=== PATIENT | male | born 1955 | race Caucasian/White ===

== ENCOUNTER 2019-02-05 01:19 | Emergency (ER) | payer OTHER ==
[2019-02-05 02:57] VITALS: BP 117/62; PULSE 79; TEMP 98.2; BMI 38.0
--- NOTE | 2019-02-05 03:00 | PDOC ---
History of Present Illness - General Chief Complaint: Nausea/Vomiting Stated Complaint: DIZZINESS,VOMITING Time Seen by Provider: 02/05/19 02:42 - History of Present Illness Initial Comments: 02/05/19 05:08 The patient is a 63 year old male who denies any significant PMH who presents for evaluation of dizziness, nausea, and vomiting. The patient is accompanied by family who assist in providing the history. They report that the patient developed acute onset of room-spinning dizziness 1 day ago with associated nausea and several episodes of non-bilious, non-bloody vomiting prompting his presentation to the ED for further evaluation. The patient reports that his symptoms worsen with movement of his head as well as lying flat. He otherwise denies headache, fevers, chills, SOB, chest pain, abdominal pain, numbness, tingling, weakness, or changes with urination or bowel movements. Past History - Past Medical History Allergies/Adverse Reactions: Allergies Allergy/AdvReac Type Severity Reaction Status Date / Time No Known Allergies Allergy Verified 02/05/19 02:57 Home Medications: Ambulatory Orders Meclizine HCl [Antivert -] 25 mg PO TID #21 tablet 02/05/19 COPD: No - Psycho Social/Smoking Cessation Hx Smoking History: Never smoked Have you smoked in the past 12 months: No Information on smoking cessation initiated: No Hx Alcohol Use: No Drug/Substance Use Hx: No Review of Systems - Review of Systems Comments:: 02/05/19 05:14 Constitutional: No fevers, chills, fatigue, malaise HEENT: No Rhinorrhea, nasal congestion, visual changes Cardiovascular: No chest pain, syncope, palpitations, lightheadedness Respiratory: No Cough, SOB, Hemoptysis, Gastrointestinal: Nausea, vomiting. No Abdominal pain, Constipation, Diarrhea, Melena Genitourinary: No Dysuria, Frequency, Urgency, Hesitancy, Hematuria, Flank pain Musculoskeletal: No Myalgia, arthralgia Skin: No rashes, itching, bruising, pallor Neurologic: Dizziness. No Headache, Numbness, Weakness, or Tingling Psychiatric: No Hallucinations. No SI or HI *Physical Exam - Vital Signs Last Vital Signs Temp Pulse Resp BP Pulse Ox 98.2 F 79 18 117/62 96 02/05/19 01:21 02/05/19 01:21 02/05/19 01:21 02/05/19 01:21 02/05/19 01:21 - Physical Exam 02/05/19 05:15 General Appearance: Nourished. No Apparent Distress HEENT: EOMI, NIKOLAI. No Pharyngeal Erythema, Tonsillar Exudate, Tonsillar Erythema Neck: No Cervical Lymphadenopathy Respiratory/Chest: Lungs Clear, Normal Breath Sounds. No Crackles, Rales, Rhonchi, Wheezing Cardiovascular: Regular Rhythm, Regular Rate. No Murmur, Gallops, Rubs Gastrointestinal/Abdominal: Normal Bowel Sounds, Soft. No Guarding, Rebound, Tenderness Musculoskeletal: No CVA Tenderness Extremity: Normal Capillary Refill Integumentary: Normal Color, Dry, Warm Neurologic: commercial fisherman II-XII NML intact, Fully Oriented, Alert, Normal Mood/Affect, Normal Response, Motor Strength 5/5. Normal Finger to Nose and Heel to [place] ED Treatment Course - LABORATORY CBC & Chemistry Diagram: 02/05/19 03:44 02/05/19 03:44 Medical Decision Making - Medical Decision Making 02/05/19 05:15 The patient is a 63 year old male who denies any significant PMH who presents for evaluation of dizziness, nausea, and vomiting. Given the patient's history and physical exam, we will obtain a cbc, cmp to evaluate further. We will treat with iv fluids, zofran and meclazine and continue to monitor and reassess while here in the ED. 02/05/19 05:16 CBC, cmp, were unremarkable. The patient reports significant improvement in his symptoms after medications. It is likely the patient's symptoms were due to a peripheral vertigo. We are comfortable discharging the patient home in stable condition. Patient and family made aware of impression and plan, return precautions discussed including but not limited to worsening pain or symptoms, fevers, or signs of infection, chest pain, respiratory distress, inability to tolerate oral intake, dehydration, syncope, or neurologic changes. The patient is to follow up with PMD and specialist as recommended within 1 week, follow up information provided and the patient will call for an appointment. The patient is to take medications as instructed for duration of time and continue with supportive care, avoid triggers and precipitants. Patient is safe for outpatient follow-up. Discharge - Discharge Information Problems reviewed: Yes Clinical Impression/Diagnosis: Dizziness Condition: Stable Disposition: HOME - Admission No - Additional Discharge Information Prescriptions: Meclizine HCl [Antivert -] 25 mg PO TID #21 tablet - Follow up/Referral Referrals: Deepak Hannah MD [Staff Physician] - - Patient Discharge Instructions Patient Printed Discharge Instructions: DI for Vertigo Additional Instructions: 1) Please follow-up with your primary care doctor in the next 2-3 days. Please call tomorrow to schedule a follow up appointment. If you cannot follow up with your doctor within 1 week please return to the Emergency Department for any urgent issues. 2) Your laboratory results were normal here in the ER. 3) If you have any worsening of symptoms or any other concerns, please return to the ER immediately. Return if worsening symptoms including fevers, headache, vomiting, visual or hearing disturbances, abdominal pain, chest pain, shortness of breath, syncope, dehydration, inability to take things by mouth/vomiting, altered mental status, or worsening concerning symptoms. 4) Please continue taking your home medications as directed. Your medications on discharge include Meclizine . Side effects may include upset stomach, abdominal pain, vomiting, or diarrhea. Do not drink alcohol with your medications. 1) Por favor, john un seguimiento con yao mdico de atencin primaria en los prximos 2-3 dickson. Por favor llame maana para programar josé miguel rafaela de seguimiento. Si no puede hacer un seguimiento con yao mdico dentro de 1 semana, por favor regrese al Departamento de Emergencias para cualquier problema urgente. 2) Los resultados de yao laboratorio randi normales aqu en Urgencias. 3) Si tiene algn empeoramiento de los sntomas o cualquier otra preocupacin, por favor regrese a la urgencia inmediatamente. Regrese si empeora los sntomas incluyendo fiebre, dolor de cali, vmitos, trastornos visuales o auditivos, dolor abdominal, dolor en el pecho, dificultad para respirar, sncope, deshidratacin, incapacidad para br[place]ford cosas por boca/vmitos, alteracin del estado mental o empeoramiento de los sntomas. 4) Por favor, contine tomando britany medicamentos caseros segn las instrucciones. Britany medicamentos en el roseanne incluyen Mecelinzina . Los efectos secundarios pueden incluir malestar estomacal, dolor abdominal, vmitos o diarrea. No jennifer alcohol con britany medicamentos. Print Language: UPPER SORBIAN - Post Discharge Activity
[2019-02-05] MEDS ORDERED: MECLIZINE HCL 25 MG TABLET (FP) PO ONE (03:02)
[2019-02-05] MEDS ORDERED: ONDANSETRON 4 MG/2 ML VIAL IVPUSH ONE (03:02)
[2019-02-05] MEDS ORDERED: SODIUM CHLORIDE 1,000 ML IV STA (03:02)
[2019-02-05] MEDS ORDERED: ONDANSETRON 4 MG/2 ML VIAL ONE (03:20)
[2019-02-05] MEDS ORDERED: MECLIZINE HCL 25 MG TABLET (FP) ONE (03:20)
[2019-02-05 03:50] LABS: EOS % 0.9 % (0-4.5); HEMATOCRIT 41.5 % (35.4-49); HEMOGLOBIN 14.4 GM/dL (11.7-16.9); LYMPH % 17.1 % (8-40); MCH 32.1 pg (25.7-33.7); MCHC 34.8 g/dl (32.0-35.9); MEAN CELL VOLUME 92.4 fl (80-96); MEAN PLT VOLUME 8.8 fl (7.5-11.1); MONO % 5.7 % (3.8-10.2); NEUT % 75.3 % (42.8-82.8); PLATELET COUNT 338 K/MM3 (134-434); RDW 13.5 % (11.9-15.9); WHITE BLOOD COUNT 12.5 K/mm3 (4.0-10.0)
--- NOTE | 2019-02-05 04:01 | PDOC ---
Attending Attestation - Resident Resident Name: Pete Barahona - ED Attending Attestation I have performed the following: I have examined & evaluated the patient, The case was reviewed & discussed with the resident, I agree w/resident's findings & plan, Exceptions are as noted
[2019-02-05 04:32] LABS: ALBUMIN 3.6 g/dl (3.4-5.0); BILIRUBIN,TOTAL 0.6 mg/dL (0.2-1); BLOOD UREA NITROGEN 17.2 mg/dL (7-18); CALCIUM 8.7 mg/dL (8.5-10.1); CREATININE 0.7 mg/dL (0.55-1.3); POTASSIUM 4.5 mmol/L (3.5-5.1); TOT PROT 7.4 g/dl (6.4-8.2)
== END 2019-02-05 05:38 | disposition home or self-care (01) ==
LOC: JER 01:19
PROC: 3E033GC Introduction of Other Therapeutic Substance into Peripheral Vein, Percutaneous Approach (ICD-10-PCS; principal; 2019-02-05)
DX: R42 Dizziness and giddiness (principal)
CPT/HCPCS: 36415; 80053; 85025; 96374; 99282-25; J7030